=== PATIENT | female | born 1940 | race Two or more races ===

== ENCOUNTER → 2024-07-18 | Outpatient (CLI) | payer OTHER, MEDICAID, SELFPAY ==
--- NOTE | 2024-07-18 09:44 | XR_ITS ---
Examination: Lumbar spine, 5 views Technique: Lumbar spine AP, lateral, coned lateral lower lumbar spine, bilateral obliques 5 views Exam date and time: July 18, 2024 1128 hours Comparison January 26, 2021 INDICATIONS: Low back pain years, more severe the last several months FINDINGS: Moderate osteopenia Diffuse significant facet arthropathy No lumbar fracture Advanced degenerative disc disease L4-L5, L5-S1 IMPRESSION: Advanced degenerative disc disease L4-L5, L5-S1
[2024-07-18 11:19] LABS: Collection Type, Urine Clean Catch; RBC,Urine 0 /hpf (0-3)
[2024-07-18 11:39] LABS: Bilirubin,Urine Negative (Negative); Blood,Urine Negative (Negative); Clarity,Urine Clear (Clear/Hazy); Color,Urine Lt-Yellow (Lt Yel-Yel); Culture Indicated,Urine Not Indicated; Glucose, Urine Negative (Negative); Ketones,Urine Negative (Negative); Leukocyte Esterase,Urine Positive (Negative); Nitrite,Urine Negative (Negative); PH,Urine 6.5 (5.0-7.0); Protein,Urine Negative (Neg - Trace); Specific Gravity,Urine 1.012 (1.001-1.035); Squamous Epithelial Cell,Urine < 1 /hpf (0-5); Urobilinogen,Urine Negative mg/dL (0.0-1.0); WBC,Urine 5 /hpf (0-5)
[2024-07-18 11:43] LABS: Basophils % (Auto) 1 % (0-2.5); Eosinophils # (Auto) 0.2 Thou/mm3 (0.0-0.5); Eosinophils % (Auto) 3 % (0-10); Hematocrit 34.8 % (36.0-46.0); Hemoglobin 11.5 g/dL (12.0-16.0); Immature Granulocytes % (Auto) 0 % (0-0); Immature Granulocytes Auto 0.02 Thou/mm3 (0.00-0.00); Lymphocytes % (Auto) 28 % (10-50); Mean Corpuscular Hemoglobin 30.1 pg (25.0-35.0); Mean Corpuscular Volume 91 fL (80-100); Monocytes # (Auto) 0.4 Thou/mm3 (0.0-0.8); Monocytes % (Auto) 6 % (0-12); Neutrophils # (Auto) 4.4 Thou/mm3 (1.8-7.7); Neutrophils % (Auto) 62 % (37-80); Nucleated Red Blood Cell % 0 /100 WBC (0); Platelet Count 216 Thou/mm3 (140-440); RDW Standard Deviation 42.6 fL (36.4-46.3); Red Blood Count 3.82 Miln/mm3 (4.00-5.20); White Blood Count 7.1 Thou/mm3 (3.6-11.0)
[2024-07-18 11:46] LABS: Glucose Estimated Average 200 mg/dL (80-131); Hemoglobin A1C 8.6 % Hgb (4.8-6.0)
[2024-07-18 12:12] LABS: Alanine Aminotransferase 8 U/L (10-49); Albumin, Serum 4.6 gm/dL (3.4-4.8); Albumin/Globulin Ratio 1.8 (1.2-2.2); Alkaline Phosphatase 93 U/L (46-116); Anion Gap 7 (7-16); Aspartate Amino Transferase 15 U/L (0-34); BUN/Creatinine Ratio 15 Ratio (12-20); Blood Urea Nitrogen 21 mg/dL (9-23); Calcium 9.4 mg/dL (8.3-10.6); Calcium (Corrected) 9.4 mg/dL (8.5-10.1); Carbon Dioxide 25.8 mMol/L (20.0-31.0); Cardiac Risk Estimate 3.7 RATIO (3.7-5.6); Chloride 105 mMol/L (98-107); Cholesterol 200 mg/dL (132-200); Creatinine (Component) 1.4 mg/dL (0.6-1.3); Globulin 2.6 gm/dL (2.3-3.5); Glucose 145 mg/dL (74-106); HDL Cholesterol 54 mg/dL (40-60); LDL Cholesterol,Calculated 123 mg/dL (0-130); Osmolality,Calculated 281 (275-295); Potassium 4.8 mMol/L (3.4-5.1); Sodium 138 mMol/L (136-145); Thyroid Stimulating Hormone 3.42 uIU/mL (0.55-4.78); Total Protein 7.2 gm/dL (5.7-8.2); Triglycerides 113 mg/dL (30-150); eGFR 37 See Note
[2024-07-18 12:26] LABS: Bilirubin,Total 0.6 mg/dL (0.3-1.2)
== END | disposition home or self-care (01) ==
LOC: COPL 09:27
PROVIDERS: PCP Family Medicine; Referring Provider Physician Assistant; Visit Provider Radiology Diagnostic Radiology
DX: M51.379 Other intervertebral disc degeneration, lumbosacral region without mention of lumbar back pain or lower extremity pain (principal); E11.9 Type 2 diabetes mellitus without complications
CPT/HCPCS: 36415; 72110; 80053; 80061; 81001; 83036; 84443; 85025

== ENCOUNTER → 2024-07-20 | Outpatient (CLI) | payer OTHER, MEDICAID, SELFPAY ==
--- NOTE | 2024-07-20 10:30 | XR_ITS ---
Examination: Pelvic ultrasound, transabdominal, complete Technique: Transabdominal ultrasound of the pelvis performed using grayscale imaging Date and time of exam: July 20, 2024 1103 hours INDICATIONS: Left-sided abdominal pain pelvic pain beginning one year ago FINDINGS: Uterus 8.1 x 2.9 x 3.6 cm, small calcifications no discrete uterine mass Endometrial stripe 0.4 cm Ovaries obscured by bowel gas IMPRESSION: Limited study No discrete uterine mass
--- NOTE | 2024-07-20 10:30 | XR_ITS ---
Examination: Abdomen sonogram, complete Date and time of exam: July 20, 2024 1050 hours INDICATIONS: Onset lower abdominal pain beginning one year ago. Technique: Multiple real-time grayscale transabdominal sonographic images of the abdomen have been obtained. Findings: No visualization gallbladder Common bile duct enlarged 1.2 cm no stones noted Pancreatic head 2.3 cm Aorta not enlarged Liver 12.9 cm no liver lesions Normal hepatopedal portal venous flow Patent IVC Right kidney 8.5 x 4.1 x 4.0 cm renal cortex 1.1 cm Left kidney 7.9 x 4.6 x 3.9 cm cortex 1.0 cm 4.6 cm lower pole 1.2 cm midpole cyst Moderate bilateral renal parenchymal scar formation No hydronephrosis Spleen 6.9 cm IMPRESSION: Abnormally enlarged common bile duct, 12 mm, clinical correlation advised, consider MRCP follow-up to exclude common bile duct stones and/or stricture
== END | disposition home or self-care (01) ==
PROVIDERS: PCP Family Medicine; Referring Provider Physician Assistant; Visit Provider Physician Assistant
DX: R10.30 Lower abdominal pain, unspecified (principal); K83.8 Other specified diseases of biliary tract
CPT/HCPCS: 76700; 76856

== ENCOUNTER 2024-12-31 18:32 | Emergency (ER) | payer MEDICARE, MEDICAID, SELFPAY ==
[2024-12-31 18:39] VITALS: PULSE 70; RESP 18; O2SAT 97
[2024-12-31 18:50] VITALS: BP 167/75; PULSE 77; RESP 17; TEMP 36.9; O2SAT 96
--- NOTE | 2024-12-31 18:50 | PD.EDANX ---
ED Anxiety RME/HPI General Chief Complaint: Anxiety Stated Complaint: ANXIETY Time Seen by Provider: 12/31/24 18:45 Arrival date/time: 12/31/24 18:32 RME / HPI RME / HPI narrative: Dr. Ashraf?s Main ED Evaluation: 84yo female with a history of DM BIBA from home presents to the ED for a chief complaint of anxiety. Per EMS, patient was complaining of anxiety and a headache on scene due to being stressed out and having problems with her ex-. Patient otherwise denies any shortness of breath, chest pain, cough, fever, chills, N/V or any other associated symptoms. NKA. Related Data Home Medications ?Medication ?Instructions ?Recorded ?Confirmed metformin 500 mg tablet 1,000 mg PO BID 07/08/20 07/08/20 Previous Rx's ?Medication ?Instructions ?Recorded hydrocodone 5 mg-acetaminophen 325 1 tab PO Q6H PRN pain #7 tabs 07/08/20 mg tablet ([place]) Allergies Allergy/AdvReac Type Severity Reaction Status Date / Time No Known Allergies Allergy Verified 12/31/24 18:38 Review of Systems Review of Systems Systems Reviewed: All systems reviewed, normal except as documented Past Medical History Past Medical History CARDIAC: Negative Congestive Heart Failure RESPIRATORY: Negative Chronic Obstructive Pulmonary Disease (COPD) GENITOURINARY: Negative Renal Disease ENDOCRINE: Positive Diabetes Mellitus Type 2; Negative Diabetes Mellitus Type 1 Social History SMOKING STATUS: Never smoker SUBSTANCE USE: does not use ED Exam Narrative Physical exam: GENERAL APPEARANCE: alert and oriented x 4, tearful, well-developed, well-nourished, no acute distress VITALS: All vitals were reviewed and the pulse ox is % on room air, which is normal according to my interpretation. HEENT: Normocephalic, atraumatic; pupils equal, round, reactive to light; EOMI; mucous membranes pink, moist; oropharynx clear NECK: Supple LUNGS: CTABL; no wheezes, no rales, no rhonchi HEART: Regular rate, regular rhythm; normal S1, S2; no murmurs ABDOMEN: non distended; normal BS; soft, no tenderness, no guarding, no rebound; no masses, no organomegaly, no hernia BACK: no CVA tenderness EXTREMITIES: atraumatic; no edema NEUROLOGIC: awake; alert and oriented x4; cranial nerves II-XII grossly intact; no focal sensory or motor deficits PSYCHIATRIC: anxious mood and affect SKIN: warm, dry, normal color; no rashes Course Quality Measures none Anxiety MDM Narrative MDM Narrative: Scribe Attestation: 12/31/24 - Gisselle Dias am scribing for and in the presence of Dr. Ashraf. 2125: I went and had an extensive conversation with the patient at bedside. She states she feels significantly better. Patient is stable to be discharged home. Patient data External records reviewed:: [facility] previous records (Per chart review, patient has no relevant previous ED visits.) Clinical information provided by:: patient and EMS Social determinants that could affect healthcare access:: none Patient has the following chronic illnesses:: DM How is presenting disease/condition affected by chronic disease/condition?: uneffected by Evaluation data The following diagnostics were reviewed and interpreted by me:: other (specify) (none) Lab and/or radiology exams considered but not ordered:: none Interpretation Summary: none Medications / Prescriptions Medications or Prescriptions considered but not ordered:: none Medication administrations:: Ativan Consultations Consultation(s) initiated? (list below): No Diagnosis Differential diagnosis anxiety: other (anxiety reaction, panic attack, SI, psychosis) Most likely diagnosis given after review of the tests above:: anxiety reaction Admission Indicated Admission indicated?: not indicated Admission Request Was there a request for admission?: No Disposition Plan Disposition Plan: Discharge Discharge Attestation Discharge Attestation: The patient and all family members were given an opportunity to ask questions and understood the discharge instructions. Discharge instructions specifically effects, indications for sooner follow up or return to the emergency department, and the expected course of current diagnosis. Patient condition: Stable Discharge Plan Plan Patient Disposition: HOME (Self Care) Discharge Disposition comment: Stable for discharge home Patient condition on transfer: Stable Prescriptions/Referrals Prescriptions/Med Rec: No Action metformin 500 mg Tablet 1,000 mg PO BID hydrocodone-acetaminophen [[place]] 5-325 mg tablet 1 tab PO Q6H MDD 4 PRN (Reason: pain) Qty: 7 0RF Referrals: [facility] [Provider Group] - In 1 week Problem List Clinical Impression: Acute anxiety Patient/Caregiver Discharge Instructions Discharge Activity: activity as tolerated Education Materials: ED Anxiety Reaction Additional Instructions: Please return to the emergency department if you have any worsening or any further medical problems and we will help you. Otherwise you should follow-up with your primary care doctor or in the [facility]. Within the next several days. Print Language: Citizen [place] Stand Alone Forms: Noreen Award Info., Patient Portal Info Letter
--- NOTE | 2024-12-31 19:15 | PC.NURSE ---
191, [place](NEIGHBOR), IS [facility] TORI [phone]
[2024-12-31] MEDS: LORazepam 2 MG/ML VIAL 1 MG IVP (19:45)
[2024-12-31 20:37] VITALS: BP 166/78; PULSE 71; RESP 18; TEMP 36.8; O2SAT 96
[2024-12-31 22:28] VITALS: BP 142/76; PULSE 76; RESP 16; TEMP 36.8; O2SAT 98
== END 2024-12-31 22:28 | disposition home or self-care (01) ==
LOC: SERX 23:11
PROVIDERS: Emergency Provider Emergency Medicine
DX: F41.9 Anxiety disorder, unspecified (principal)
CPT/HCPCS: 96374; 99284; J2060